=== PATIENT | male | born 1960 | race Caucasian/White ===

== ENCOUNTER → 2022-02-16 | Outpatient (CLI) | payer OTHER, SELFPAY ==
[2022-02-16 15:40] LABS: ALB/GLOB Ratio 1.1 RATIO (0.9-2.4); AST(SGOT) 28 U/L (15-37); Alanine Aminotransfer ALT/SGPT 48 U/L (16-61); Albumin, Serum 3.9 g/dL (3.2-5.0); Alkaline Phosphatase 78 U/L (45-117); Anion Gap 6 (5-15); BUN 12 mg/dL (7-18); BUN/Creat Ratio 13.9 RATIO (10-20); Calcium,Total 8.6 mg/dL (8.5-10.1); Chloride 105 mmol/L (98-107); Creatinine, Serum 0.87 mg/dL (0.70-1.30); EST Glomerular Filtration Rate 96 mL/min (>60); Est Glom Filt Rate - Afr Amer 116 mL/min (>60); Globulin 3.6 g/dL (2.2-4.2); Glucose 95 mg/dL (74-106); Potassium 3.7 mmol/L (3.5-5.1); Protein, Total 7.5 g/dL (6.4-8.2); Sodium Level 138 mmol/L (136-145)
== END | disposition home or self-care (01) ==
LOC: MFPLAB 13:59
PROVIDERS: PCP Family Medicine; Referring Provider Family Medicine; Visit Provider Family Medicine
DX: L29.8 Other pruritus (principal)
CPT/HCPCS: 36415; 80053

== ENCOUNTER → 2022-03-30 | Outpatient (CLI) | payer OTHER, SELFPAY ==
[2022-03-30 12:54] LABS: Erythrocyte Sedimentation Rate 10 mm/hr (0-20)
[2022-03-30 12:59] LABS: Absolute Lymphocyte Count 1.44 X10^3/uL (0.83-4.51); Absolute Neutrophil Count 3.1 X10^3/uL (2.0-7.7); Basophil# 0.05 X10^3/uL; Basophil% 0.9 % (0-1); Eosinophil# 0.19 X10^3/uL; Eosinophils% 3.5 % (0-5); Hemoglobin 14.1 g/dL (13.0-16.5); Lymphocyte # 1.44 X10^3/ul (0.83-4.51); Lymphocyte % 26.6 % (19-41); Mean Corp Hgb Conc 32.8 g/dL (32-36); Mean Corpuscular Hgb 30.8 pg (27.0-32.0); Mean Corpuscular Volume 93.9 fL (80-94); Mean Platelet Vol. 10.3 fl (6.2-12.0); Monocyte# 0.61 X10^3/uL; Monocyte% 11.3 % (0-10); NRBC Flagged by Analyzer 0 % (0-5); Neutrophil # 3.11 X10^3/uL (2.7-7.7); Neutrophil % 57.5 % (47-70); Platelet Count 237 K/mm3 (150-450); RBC Distribution Width CV 12.4 % (11.6-14.6); RBC Distribution Width SD 42.6 fl (35.1-43.9); Red Blood Count 4.58 M/mm3 (4.6-6.2); White Blood Count 5.4 K/mm3 (4.4-11.0)
[2022-03-30 13:06] LABS: ALB/GLOB Ratio 1.1 RATIO (0.9-2.4); AST(SGOT) 26 U/L (15-37); Alanine Aminotransfer ALT/SGPT 41 U/L (16-61); Albumin, Serum 3.5 g/dL (3.2-5.0); Alkaline Phosphatase 78 U/L (45-117); Anion Gap 6 (5-15); BUN 18 mg/dL (7-18); BUN/Creat Ratio 20.5 RATIO (10-20); Calcium,Total 8.5 mg/dL (8.5-10.1); Chloride 106 mmol/L (98-107); Creatinine, Serum 0.88 mg/dL (0.70-1.30); EST Glomerular Filtration Rate 94 mL/min (>60); Est Glom Filt Rate - Afr Amer 114 mL/min (>60); Globulin 3.3 g/dL (2.2-4.2); Glucose 136 mg/dL (74-106); Potassium 4.2 mmol/L (3.5-5.1); Protein, Total 6.8 g/dL (6.4-8.2); Rheumatoid Factor < 10.0 IU/mL (<15); Sodium Level 138 mmol/L (136-145)
[2022-04-01 14:15] LABS: Anti-Nuclear Antibody Test Negative (.)
[2022-04-03 20:58] LABS: G6PD Quant Test 246 (127-427)
== END | disposition home or self-care (01) ==
LOC: MTLAB 11:07
PROVIDERS: PCP Family Medicine; Referring Provider Dermatology; Visit Provider Dermatology
DX: L50.8 Other urticaria (principal)
CPT/HCPCS: 36415; 80053; 82955; 85025; 85652; 86038; 86431

== ENCOUNTER → 2024-03-29 | Outpatient (CLI) | payer OTHER, SELFPAY ==
--- NOTE | 2024-03-29 06:41 | MRI_ITS ---
STUDY: MRI LEFT MIDFOOT REASON FOR EXAM: Male, 63 years old. SOFT TISSUE MASS HEAD OF 3-5 METATARSALS, PLANTAR FASCIITIS, C/O LATERAL PAIN FROM HEEL TO MID 5TH METATARSAL X 6 MONTHS TECHNIQUE: Standardized fat and water weighted pulse sequences were obtained in all 3 orthogonal planes. COMPARISON: Left forefoot radiographs dated 09/02/2014. FINDINGS: There is thickening, increased intrasubstance signal, and perifascial edema of the origin of the plantar fascia (sagittal STIR series 10 images 13-15), compatible with plantar fasciitis. There is mild marrow stress edema in the plantar calcaneal tuberosity. Normal talonavicular articulation. Normal calcaneocuboid articulation. Normal navicular-cuneiform articulations. Normal intercuneiform articulations. Normal first tarsometatarsal articulation. Normal Lisfranc ligament. Normal second and third tarsometatarsal articulations. Normal cuboid fourth and cuboid fifth tarsometatarsal articulation. Normal first through fifth metatarsi. There is no demonstrated fracture of the metatarsal bones. There is mild second and third intermetatarsal space bursitis. Normal tibialis anterior tendon. Normal extensor hallucis longus tendon. Normal extensor digitorum longus tendons. Normal peroneus longus tendon and distal insertion. Normal peroneus brevis tendon and distal insertion. Normal intrinsic muscles of the mid and forefoot region. Normal extensor digitorum brevis muscle. Normal subcutis adipose space. MRI/Lower Ext/No Jt/w/o IMPRESSION: Plantar fasciitis with mild marrow stress edema in the plantar calcaneal tuberosity. Mild second and third intermetatarsal space bursitis. Electronically Signed: Juan Pan MD at 9:53 EST ,
== END | disposition home or self-care (01) ==
PROVIDERS: PCP Family Medicine; Referring Provider Podiatrist; Visit Provider Podiatrist
DX: M72.2 Plantar fascial fibromatosis (principal); M79.9 Soft tissue disorder, unspecified; M77.51 Other enthesopathy of right foot and ankle
CPT/HCPCS: 73718

== ENCOUNTER 2024-05-03 15:00 | Outpatient (RCR) | payer OTHER, SELFPAY ==
--- NOTE | 2024-04-16 15:44 | HP.PTEVAL_ITS ---
Patient's Visit Information Visit Information Visit Information: ELIZABETH FONTAINE is a 63 year old M referred to Physical Therapy by Dr. Victoriano Grant, DPMihir with a diagnosis of L Plantar fasciitis w/heel spur and bursitis 2nd & 3rd Intermet spaces.. Date of Evaluation: 04/15/24 Physical Therapist: Miladis Swift, PT, Cert MDT Visit Plan Frequency: 2x /Week Duration: 4 Weeks Plan: US AND STM WITH AND WITHOUT INSTRUMENTS TO L WEB DEVELOPMENT CONSULTANT AREAS X 6 TO 8 TREATMENTS APPROPRIATE to break up scar tissue, increase blood flow, and promote healing. HEP Instruction for LLE HS, Quad, Toe, Gastroc and Soleus Stretching. Also instruct in Toe and 4 way ankle strengthening. Focus on decreasing inflammation and keeping ex's in comfortable ROM and intensity. 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 [employer] GOL[employer]. Present symptoms: L LATERAL HEEL AND FOOT PAIN ALMOST UP TO BUT NOT INCLUDING LITTLE TOE. Present since: ABOUT JAN 2024. Pain Scale: WORST 4/10, LEAST 0/10 Currently: 0/10 Is it getting better, worse or staying the same: STAYING THE SAME. Commenced as a result of: PLAYING A LOT OF DISC GOLF - MAYBE. Symptoms at onset: L LATERAL FOOT PAIN JUST IN FRONT OF THE HEEL. Worse: INITIATING GAIT IN THE MORNING SOMETIMES, AT THE END OF THE DAY AFTER A LOT OF WALKING ON CONCRETE AT WORK, AT NIGHT WHEN SLEEPING ON L SIDE, CERTAIN SHOES, DISC GOLFING, STRETCHING ABOUT 7-10 DAYS AGO HURT IT SO HAS BEEN VERY CAREFUL SINCE. EASILY PROVOKED TODAY JUST SLIPPING SHOE OFF AND ON. Better: ICE, WIDER SHOES, UNLOADING THE OUTSIDE OF FOOT IN LYING, AVOIDING PROLONGED WALKING AT WORK, RESTING FROM DISC GOLF Disturbed sleep: YES Previous history/Previous treatment: H/O PLANTAR FASCITIS ONCE IN EACH FOOT IN THE PAST (ONE OF THEM TOOK A FEW MONTHS TO GET OVER). Treatment this episode: ORTHOTICS MAY 2023. HAVING ANOTHER SET BEING MADE BY DR. GRANT Unexplained weight loss: NO Imaging: YES - EXTENSIVE SOFT TISSUE CALCIFICATION PER DR. GRANT WITH MRI RECOMMENDED AND COMPLETED 03/29/24. PATIENT REPORTS DR. GRANT CALLED HIM WITH THE MRI RESULTS AND THEN RECOMMENDED PT AND ANOTHER SET OF ORHTOTICS. FOLLOW UP WITH DR. GRANT PENDING IN APPROX ONE MONTH. PMH/Recent major surgery: UNREMARKABLE OTHER THAN HISTORY OF INTERMITTENT LOW BACK PAIN. HAS TO BE CAREFUL WITH BENDING DUE TO L SI TYPE PROBLEM. Objective Objective: Sitting/Standing Posture: SLOUCHED IN SITTING. DECREASED LORDOSIS IN STANDING. NO RELEVANT LUMBAR LATERAL SHIFT. Other Observations: INDEP GAIT AND TRANSFERS. MILD LIMP ON LLE. Sensory deficit: ERIC LE LIGHT TOUCH SENSATION GROSSLY INTACT AND SYMMETRICAL ROM deficit: ERIC LE HS AND GASTROC SOLEUS COMPLEX TIGHTNESS WITH ROM SYMMETRICAL BUT C/O PAIN WITH TESTING L ONLY. Motor deficit: ERIC LE'S 5/5 Dural Signs: NEGATIVE ERIC LE'S. Lumbar mvmt loss: flex - MIN ext - CRISTINA R SG - CRISTINA L SG - CRISTINA PATIENT DENIES BACK PAIN BUT REPORTS STIFFNESS WITH BACK ROM TESTING AND DENIES INCREASED FOOT SX'S EXCEPT WHEN L SG'ING AND INCREASING WT BEARING ON L FOOT. L FOOT NW. Core strength: FAIR. Palpation: TENDERNESS WITH PALPATION OF L PERONEAL TENDONS AND ALONG DORSOM OF 2ND, 3RD AND 4TH METATARSALS. HE IS ALSO TENDER AT THE BASE OF THE 5TH METATARSAL LATERALLY. Balance/Special Test Scores Lower Extremity Functional Score: 64 Goals Goal 1:: DECREASE C/O L FOOT PAIN BY AT LEASE 50% TO EASE ADL, WORK AND RECREATIONAL FUNCTION Goal Time Frame: 4-6 Weeks Goal 2:: PATIENT WILL DEMONSTRATE NORMALIZED GAIT PATTERN ON EVEN SURFACES X 300 FEET WITHOUT C/O PAIN. Goal Time Frame: 4-6 Weeks Goal 3:: PATIENT WILL DEMONSTATE THE ABILITY TO GO UP AND DOWN STEPS REC IPROCALLY WITHOUT A HR WITHOUT LIMITATION X 1 FLIGHT Goal Time Frame: 4-6 Weeks Goal 4:: INDEP HEP Goal Time Frame: 4-6 Weeks Rehabilitation Potential Physical Therapy Diagnosis: L lateral heel and foot pain and tenderness with LE stiffness. Rehabilitation Potential: Good Anticipated Interventions Patient/Client Instruction: Educate patient on: Condition, Plan of Care and Risk Factors For the Purpose of:: To improve self management Therapeutic Exercise to Include: Strength training, Flexibilty training, Gait and locomotor training and Neuromotor development For the Purpose of:: To decrease pain, To increase ROM, To improve nutrient delivery to tissue, To improve muscle performance and motor function, To improve ability to perform ADL's, To increase tolerance to activity/condition/position, To improve ability of physical actions for home/community/work/leisure, To improve gait and locomotor functions and To increase flexibility/ROM Manual Therapy Techniques to Include: Soft tissue mobilization For the Purpose of:: To decrease pain, To improve nutrient delivery to tissue, To decrease soft tissue restriction and To increase flexibility/ROM Cryotherapy (ice pack, ice massage): Yes Thermo therapy (hot pack): Yes Ultrasound (thermal/non thermal): Yes For the Purpose of:: To decrease pain and To improve nutrient delivery to tissue Text: Thank you for the opportunity to evaluate your patient. For Medicare and Medicare HMO plans, please review the plan of care and approve it. It will need to be FAXED BACK to us at [phone] for Medicare purposes. For Medicare only, by signing this I certify the plan of care. Please let me know if there are questions or concerns regarding this plan of care. Physician Signature: Date:
--- NOTE | 2024-05-03 16:10 | HP.PTDCSUM ---
Discharge Summary D/C summary: It has been my pleasure to treat ELIZABETH FONTAINE referred by Dr. Victoriano Mosquera, DPM, with the diagnosis of L Plantar fasciitis w/heel spur and bursitis 2nd & 3rd Intermet spaces. for a total of 6 visit(s). Discharge Date: 05/03/24 Please see the following information for a summary of their discharge status. Subjective Subjective: I STILL GET SOME SORENESS IN THERE BUT NOT ALL THE TIME Pain Left Foot: Pain Intensity (Out of 10): 0 Overall Improvement % Improvement: 90 Objective Objective/Function: PATIENT WAS SEEN TODAY FOR RE-ASSESSMENT OF PROGRESS TOWARD THE SET PT GOALS AND THE NEED FOR FURTHER PHYSICAL THERAPY VS READINESS FOR DISCHARGE. UPON EXAM TODAY ALL GOALS HAVE BEEN MET. PATIENT DOES NOT HAVE ANY C/O PAIN TODAY WITH DONNING OR DOFFING L SHOE, L FOOT OR ANKLE PAIN WITH ROM OR STRETCHING AND DOES NOT HAVE FOOT TENDERNESS TODAY. HIS GAIT HAS NORMALIZED AND HIS IS INDEP WITH HEP. Goals Goal 1:: DECREASE C/O L FOOT PAIN BY AT LEASE 50% TO EASE ADL, WORK AND RECREATIONAL FUNCTION Goal Progress: Goal Met Goal 2:: PATIENT WILL DEMONSTRATE NORMALIZED GAIT PATTERN ON EVEN SURFACES X 300 FEET WITHOUT C/O PAIN. Goal Progress: Goal Met Goal 3:: PATIENT WILL DEMONSTATE THE ABILITY TO GO UP AND DOWN STEPS RECIPROCALLY WITHOUT A HR WITHOUT LIMITATION X 1 FLIGHT Goal Progress: Goal Met Goal 4:: INDEP HEP Goal Progress: Goal Met Plan Plan: D/C TO HEP. PATIENT IS AGREEABLE. D/C Information d/c sentence: If there are questions or concerns regarding this patient's physical therapy, please feel free to call me at [phone]. Thank you for the referral of this patient. Sincerely, Miladis Swift, PT, Cert MDT Balance/Gait/Functional tests Balance/Special Test Scores Lower Extremity Functional Score: 70 Improvement % Improvement: 90
== END 2024-05-03 19:00 | disposition home or self-care (01) ==
LOC: PT 15:00
PROVIDERS: PCP Family Medicine; Referring Provider Podiatrist; Visit Provider Podiatrist
DX: M72.2 Plantar fascial fibromatosis (principal); M77.8 Other enthesopathies, not elsewhere classified; M77.52 Other enthesopathy of left foot and ankle
CPT/HCPCS: 97035; 97110; 97140; 97162; 97530